=== PATIENT | female | born 1950 | race Caucasian/White ===

== ENCOUNTER 2016-11-16 14:16 | Emergency (ER) | payer OTHER ==
[2016-11-16 14:23] VITALS: BP 130/77; PULSE 92; RESP 16; TEMP 99.2; O2SAT 93
[2016-11-16 14:33] LABS: COLOR YELLOW; LEUKOCYTE ESTERASE,URINE NEGATIVE (NEGATIVE); NITRITE,URINE NEGATIVE (NEGATIVE); PH,URINE 5.5 (5.0-7.5)
--- NOTE | 2016-11-16 14:53 | EDPHY ---
HPI/HX/ROS/PE/MDM Narrative: CHIEF COMPLAINT: "I have a UTI" HPI: The patient is a 66-year-old female with history of fibromyalgia. She complains of dysuria and urinary frequency has been present for approximately 1 week. She has been taking a friend's amoxicillin but reports no improvement. She denies fever or vomiting. She denies abdominal pain. She denies recent sexual encounter. Patient requests a prescription for Bactrim DS. REVIEW OF SYSTEMS: Aside from elements discussed in the HPI, a comprehensive 10-point review of systems was reviewed and is negative. PMH: Fibromyalgia SOCIAL HISTORY: Denies alcohol or drug abuse. PHYSICAL EXAM: General:Patient is alert, in no acute distress. ENT:Eyes are normal to inspection. ENT inspection normal. Neck: Normal inspection. Full range of motion. Respiratory:No respiratory distress. Breath sounds normal bilaterally. Cardiovascular: Regular rate and rhythm. Strong peripheral pulses. Normal cap refill. Abdomen:The abdomen is nontender to palpation. There are no peritoneal signs. There are normal bowel sounds. Neuro: Oriented x3. Normal motor function. Normal sensory function. Odd affect , difficult interview. MDM: This patient presents with signs and symptoms of a urinary tract infection for which she has been treating with non prescribed amoxicillin. Urinalysis here in the emergency department is essentially negative with the exception of some mild blood. It is likely that she has largely treated today infection, but she requests prescription for Bactrim DS which I have supplied to her. I see no signs of pyelonephritis or systemic illness. - Data Points Laboratory Results: 11/16/16 14:30 Urine Color YELLOW Urine Appearance CLEAR Urine pH 5.5 (5.0-7.5) Ur Specific [place] 1.015 (1.002-1.030) Urine Protein NEGATIVE (NEGATIVE) Urine Ketones NEGATIVE (NEGATIVE) Urine Blood 2+ H (NEGATIVE) Urine Nitrate NEGATIVE (NEGATIVE) Urine Bilirubin NEGATIVE (NEGATIVE) Urine Urobilinogen 0.2 EU EU (0.2-1.0) Ur Leukocyte Esterase NEGATIVE (NEGATIVE) Urine RBC Pending Urine WBC Pending Ur Epithelial Cells Pending Urine Glucose NEGATIVE (NEGATIVE) General Time Seen by Provider: 11/16/16 14:24 Initial Vital Signs: Initial Vital Signs Temperature (C) 37.3 C 11/16/16 14:18 Heart Rate 92 11/16/16 14:18 Respiratory Rate 16 11/16/16 14:18 Blood Pressure 130/77 H 11/16/16 14:18 O2 Sat (%) 93 11/16/16 14:18 O2 Delivery Mode Room Air Allergies/Adverse Reactions: No Known Allergies Allergy (Unverified 11/16/16 14:22) Home Medications: Medication Instructions Recorded LORAZEPAM 11/16/16 Sulfamethox/Tmp 800/160 mg 1 tab PO BID #14 tab 11/16/16 [Bactrim Ds] Tylenol #4 (RX) 11/16/16 Departure - Departure Disposition: Home, Routine, Self-Care Clinical Impression: Urinary tract infection Condition: Good Instructions: Urinary Tract Infection in Women (ED) Referrals: NONE *PRIMARY CARE P,. [Primary Care Provider] - As per Instructions Prescriptions: Sulfamethox/Tmp 800/160 mg [Bactrim Ds] 1 tab PO BID #14 tab
[2016-11-16 14:54] LABS: AMORPHOUS 1+ /hpf (NONE-1+); MUCUS 2+ /lpf (NONE-1+)
== END 2016-11-16 15:00 | disposition home or self-care (01) ==
LOC: CED 14:16
DX: N39.0 Urinary tract infection, site not specified (principal)
CPT/HCPCS: 81003-PO; 81015-PO